=== PATIENT | female | born 1950 | race Caucasian/White ===

== ENCOUNTER → 2017-07-27 | Outpatient (CLI) | payer OTHER, MEDICARE | LOC: FIMAGING 10:13 | PROVIDERS: ATTEND Internal Medicine | DX: Z12.31 Encounter for screening mammogram for malignant neoplasm of breast (principal) | CPT/HCPCS: G0202 ==

== ENCOUNTER → 2017-09-02 | Outpatient (CLI) | payer OTHER, MEDICARE | LOC: FIMAGING 12:11 | PROVIDERS: ATTEND Internal Medicine | DX: R92.8 Other abnormal and inconclusive findings on diagnostic imaging of breast (principal) ==

== ENCOUNTER → 2017-09-22 | Day surgery (SDC) | payer OTHER, MEDICARE ==
[~2017-09-22] MED LIST: LIDOCAINE 1% 2 ML INJ ID PRN; LR 1,000 ML IV ONE; TRANEXAMIC ACID 1,000 MG in NS (SYRINGE) 50 ML IV ONE; ceFAZolin 2 GM/SWFI 2 GM/20 ML SYR IVP ONE
== END | disposition home or self-care (01) ==
LOC: UNDOADMIN 05:40 → FSGY 05:40 → F3N 05:40 → EDSTATUS 07:15
PROVIDERS: ATTEND Orthopaedic Surgery Sports Medicine
DX: M17.12 Unilateral primary osteoarthritis, left knee (principal); Z53.9 Procedure and treatment not carried out, unspecified reason

== ENCOUNTER 2017-10-12 05:42 | Observation (INO) | payer OTHER, MEDICARE ==
[2017-10-12] MEDS ORDERED: ROPIVACAINE 0.2% 80 MG, EPINEPHrine 0.2 MG, KETOROLAC TROMETHAMINE 30 MG, morphINE 10 M... IU ONE (06:00)
[2017-10-12] MEDS ORDERED: BUPI/epINEPH/KETOROLAC/morphINE IU ONE (06:00)
[2017-10-12] MEDS ORDERED: TRANEXAMIC ACID 1,000 MG in NS (SYRINGE) 50 ML IV ONE (06:00)
[2017-10-12] MEDS ORDERED: ceFAZolin 2 GM/SWFI 2 GM/20 ML SYR IVP ONE (06:08)
[2017-10-12] MEDS ORDERED: LIDOCAINE 1% 2 ML INJ ID PRN (06:09)
[2017-10-12] MEDS ORDERED: LR 1,000 ML IV ONE (06:09)
--- NOTE | 2017-10-12 06:17 | PDANEPAE ---
ANE History of Present Illness Knee arthroplasty,L ANE Past Medical History - Cardiovascular History Hx Hypertension: Yes Hx Arrhythmias: No Hx Chest Pain: No Hx Coronary Artery / Peripheral Vascular Disease: No Hx CHF / Valvular Disease: No Hx Palpitations: No Cardiovascular History Comment: Mother heart failure 68 yo. echocardiogram on 05/16: diastolic dysfunction - Pulmonary History Hx COPD: No Hx Asthma/Reactive Airway Disease: No Hx Recent Upper Respiratory Infection: No Hx Oxygen in Use at Home: No Hx Sleep Apnea: No Sleep Apnea Screening Result - Last Documented: Negative - Neurologic History Hx Cerebrovascular Accident: No Hx Seizures: No Hx Dementia: No Neurologic History Comment: acute encephalopathy on 05/16 - Endocrine History Hx Diabetes: No Hypothyroid: No Hyperthyroid: No Obesity: mild - Renal History Hx Renal Disorders: No Renal History Comment: acute renal failure on 05/16, creatinine returned to normal levels - Liver History Hx Hepatic Disorders: No Hepatic History Comment: elevated enzymes when drinking. Elevated LFT's on , associated with alcohol/substance use - Neurological & Psychiatric Hx Hx Neurological and Psychiatric Disorders: Yes Neurological / Psychiatric History Comment: mild depression&anxiety-med - Cancer History Hx Cancer: No - Congenital Disorder History Hx Congenital Disorders: Yes Congenital History Comment: alcoholism in past. - GI History GERD: no Hx Gastrointestinal Disorders: No Gastrointestinal History Comment: norm colonoscopy 02/15/14. - Other Health History Other Health History: Bilateral hearing loss-aids. Osteoarthritis in joints. Upper&lower missing teeth. - Chronic Pain History Chronic Pain: Yes (lower back) - Surgical History Prior Surgeries: 2011- R breast BX, neg. 2005-uterine ablation. 1978-ORIF R ankle. R ear mastoidectomy-1980. ANE Review of Systems Review of Systems: - Exercise capacity METS (RN): 4 METS ANE Patient History - Allergies Allergies/Adverse Reactions: No Known Allergies Allergy (Verified 10/05/17 16:06) - Home Medications Home Medications: Benazepril HCl [Lotensin (*)] 20 mg PO DAILY 02/12/14 [Last Taken 10/11/17] amLODIPine BESYLATE [Norvasc 10 mg (*)] 10 mg PO DAILY 02/12/14 [Last Taken 07/19] Zolpidem Tartrate [Ambien 5MG (*)] 5 mg PO HS 02/16/14 [Last Taken 10/11/17] ALPRAZolam [Xanax 0.5 MG (*)] 0.5 mg PO DAILY 04/25/15 [Last Taken 10/12/17] Acetamn/Diphenhydramine 500/25 [Tylenol PM (*)] 1 each PO HS PRN 10/05/17 [Last Taken 10/10/17] - Anes Hx Anes Hx: no prior problems - Smoking Hx Smoking Status: Never smoked - Family Anes Hx Family Anes Hx: none Family Hx Anesthesia Complications: none ANE Labs/Vital Signs - Vital Signs Height: 162.56 cm Weight: 72.575 kg ANE Physical Exam - Airway Neck exam: FROM Mallampati Score: Class 2 - Pulmonary Pulmonary: clear to auscultation - Cardiovascular Cardiovascular: regular rate and rhythym - ASA Status ASA Status: II ANE Anesthesia Plan Anesthesia Plan: spinal Regional Anesthesia: adductor canal FNB
[2017-10-12] MEDS ORDERED: ceFAZolin 1 GM/5 ML SYR ONE (07:01)
[2017-10-12] MEDS ORDERED: fentaNYL 100 MCG/2 ML INJ ONE (07:05)
[2017-10-12] MEDS ORDERED: PROPOFOL 200 MG/20 ML VIAL ONE ×3 (07:06→08:53)
--- NOTE | 2017-10-12 07:07 | PDHPUP ---
History & Physical Update H&P update statement: This history and physical update is based on an assessment of the patient which was completed after admission or registration (within 24 hours), but prior to the surgery/procedure. H&P update: H&P reviewed & patient examined, no change in patient's condition since H&P completed
[2017-10-12] MEDS ORDERED: MIDAZOLAM 2 MG/2 ML VIAL IVP ONE (07:08)
[2017-10-12] MEDS ORDERED: TRANEXAMIC ACID 1,000 MG/10 ML VIAL ONE (08:20)
[2017-10-12] MEDS ORDERED: BUPIVACAINE 0.5% 10 ML SDV ONE (09:16)
[2017-10-12] MEDS ORDERED: clonIDINE 1 MG/10 ML VIAL EP ONE (09:17)
[2017-10-12] MEDS ORDERED: fentaNYL 100 MCG/2 ML INJ IVP PRN (09:45)
[2017-10-12] MEDS ORDERED: HYDROmorphONE/DILAUDID 1 MG/ML INJ IVP PRN (09:45)
[2017-10-12] MEDS ORDERED: NALOXONE HCL 0.4 MG/ML INJ IVP PRN (09:45)
[2017-10-12] MEDS ORDERED: TEMAZEPAM 15 MG CAP PO PRN (09:59)
[2017-10-12] MEDS ORDERED: CYCLOBENZAPRINE 10 MG TAB PO PRN (09:59)
[2017-10-12] MEDS ORDERED: DIPHENOXYLATE/ATROPINE LOMOTIL 1 TAB PO PRN (09:59)
[2017-10-12] MEDS ORDERED: ONDANSETRON 4 MG/2 ML VIAL IVP PRN (09:59)
[2017-10-12] MEDS ORDERED: PROMETHAZINE HCL 25 MG SUPPR PR PRN (09:59)
[2017-10-12] MEDS ORDERED: PROMETHAZINE HCL 25 MG/ML INJ IVP PRN (09:59)
[2017-10-12] MEDS ORDERED: METOCLOPRAMIDE 10 MG/2 ML VIAL IVP PRN (09:59)
[2017-10-12] MEDS ORDERED: ONDANSETRON DISINTEGRATING 4 MG TAB PO PRN (09:59)
[2017-10-12] MEDS ORDERED: diphenhydrAMINE 25 MG CAP PO PRN (09:59)
[2017-10-12] MEDS ORDERED: LR 1,000 ML IV SCH ×2 (10:00→14:30)
--- NOTE | 2017-10-12 10:30 | POSTANESTH ---
Post Anesthetic Evaluation Cardiovascular Status: Similar to Pre-Op Cond Respiratory Status: Normal, Stable Level of Consciousness/Mental Status: Can Participate in Eval Pain Control: Adequate, Prn Tx Ordered Nausea/Vomiting Control: Adequate, Prn Tx Ordered Complications Possibly Related to Anesthesia: None Noted
--- NOTE | 2017-10-12 10:35 | GOP ---
[f rep st] OPERATIVE REPORT DATE OF OPERATION: 10/12/2017 SURGEON: Donaldo Serrano MD FEED MILL MANAGER: Mary Cole PA-C ANESTHESIA: Spinal. PREOPERATIVE DIAGNOSIS: 1. Left knee osteoarthritis. 2. Genu valgum. POSTOPERATIVE DIAGNOSIS: 1. Left knee osteoarthritis. 2. Genu valgum. PROCEDURE PERFORMED: Left total knee arthroplasty with posterior stabilized ConforMIS knee system. FINDINGS: DESCRIPTION OF PROCEDURE: Patient taken to the operating room under spinal anesthesia, placed in the supine position. The left lower extremity was prepped and draped in normal sterile fashion. Esmarc h exsanguination was performed followed by elevation of thigh cuff to 275 mmHg pressure. Midline inc ision was made through dermal subcutaneous tissues. Medial parapatellar incision was made. The huynh lla was reflected laterally. The anterior fat pad was partially excised. The anterior portion, medi al and lateral menisci were excised. The ACL remnant was excised. Distal femur was exposed. The di stal femoral drill guide was placed in the distal femur, indexed off the anterior cortex. Two drill lugs were made down to subchondral bone. The distal femoral cutting block was then placed on the dis chi femur, indexed off the subchondral bone and the medial and lateral femoral condyles. The guide w as secured with 3 pins. Distal femoral cut was a single cut made with the oscillating saw. The tibi a was exposed and retracted anteriorly. The articular surface of medial and lateral tibial plateaus was denuded of its cartilage using a ring curette. The tibial guide was then placed in the tibia and secured with 3 pins. The tibial cut was then made with the oscillating saw. This wafer of bone was removed. Our flexion extension gaps were assessed and felt to be appropriately balance. We subsequ ently placed the AP cutting block on the distal femur. Two pins were placed in the previously drille d axial holes on the end of the femoral condyles. Our flexion gap was then assessed with the AP cutt ing block in place. This was then secured with the medial and lateral pin. The AP cuts were then ma de with the oscillating saw. The anterior chamfer cut was then made with the oscillating saw. Two d rill lugs were drilled for the distal femur. The posterior chamfer cutting block was then placed in these drill lug holes. The 2 posterior chamfer cuts were made with the oscillating saw. The implant was a posterior stabilized implant and therefore, we placed the posterior stabilized cutting guide o n the femur. Our tunnel cut was then made with the reciprocating saw followed by the oscillating saw . The distal femoral trial implant was put in place and fit appropriately. The tibial tray was put in place. We tried a 6 and an 8. The 8 seemed to be most appropriate. The rotational axis was maribell ed. The trials were brought out. Our tibial tray was then pinned into position on the tibia in the appropriate alignment. Then, we drilled the metaphysis with the metaphyseal drill and then used the fin impaction device to impact the fins. Cement mixing commenced. Thorough lavage performed of all surfaces. All surfaces were thoroughly dried. The tibia cemented into place, followed by the femur, followed by the patella. After cement cured a no thumbs patellar test was performed. Patella track ed well. All excess cement was removed. The tourniquet was let down. Small bleeders were cauterized . The 8 mm poly insert was impacted into position. Again, the knee was put through flexion extensio n arc of motion, felt to be stable. The patella tracked well. Thorough lavage was again performed w ith normal saline. The retinaculum was closed with a #1 Vicryl suture followed by closure of subcuta neous tissue with 2-0 Vicryl suture, followed by closure of the dermis with jd. A sterile compr ession dressing applied. The patient tolerated procedure well, transferred back to recovery in sta e condition. No operative complications. COMPLICATIONS: None. /[id number]/MODL
[2017-10-12] MEDS ORDERED: BISACODYL 10 MG SUPP PR PRN (14:01)
[2017-10-12] MEDS ORDERED: LACTULOSE 20 GM/30 ML UDCUP PO PRN (14:01)
[2017-10-12] MEDS ORDERED: POLYETHYLENE GLYCOL 3350 17 GM PKT PO PRN (14:01)
[2017-10-12] MEDS ORDERED: MAGNESIUM HYDROXIDE 30 ML UDCUP PO PRN (14:01)
[2017-10-12] MEDS: oxyCODONE IR 5 MG TAB PO PRN ×3 (14:30→19:05)
[2017-10-12] MEDS ORDERED: WARFARIN SODIUM 7.5 MG TAB PO SCH (16:00)
[2017-10-12] MEDS: ceFAZolin 2 GM/SWFI 2 GM/20 ML SYR IVP SCH (16:58)
[2017-10-12] MEDS ORDERED: ZOLPIDEM TARTRATE 5 MG TAB PO SCH (21:00)
[2017-10-12] MEDS: FAMOTIDINE 20 MG TAB PO SCH (21:22)
[2017-10-12] MEDS: SENNOSIDES/DOCUSATE SODIUM TAB PO SCH (21:24)
[2017-10-13] MEDS: oxyCODONE IR 5 MG TAB PO PRN ×3 (01:14→14:16)
[2017-10-13] MEDS: ceFAZolin 2 GM/SWFI 2 GM/20 ML SYR IVP SCH (01:15)
[2017-10-13 06:15] LABS: INR 1.32 (0.83-1.16); PROTIME(PATIENT) 16.6 SEC (12.0-15.0)
[2017-10-13] MEDS: SENNOSIDES/DOCUSATE SODIUM TAB PO SCH (08:54)
[2017-10-13] MEDS: FAMOTIDINE 20 MG TAB PO SCH (08:54)
[2017-10-13] MEDS ORDERED: BENAZEPRIL HCL 20 MG TAB PO SCH (09:00)
[2017-10-13] MEDS ORDERED: SERTRALINE HCL 50 MG TAB PO SCH (09:00)
[2017-10-13 09:05] VITALS: RESP 16
--- NOTE | 2017-10-13 09:20 | SOAPPROG ---
SOAP Progress Note Assessment/Plan: Assessment: POD #1 s/p LEFT TKA: doing well, has been up with PT/OT, no signs of infection at this time. Pain well controlled, has passed flatus. Plan: -PT/OT: continue WBAT, encourage safe ambulation. Ok to D/C once cleared by PT/ OT. Will continue PT outpatient. -DVT prophylaxis: continue HAYLEE hose, SCDs, warfarin to dose. Advised patient to watch for worsening cough, congestion, chest pain, SOB, dyspnea, claudication, change in heat/color of extremity and to seek immediate medical attention if seen. -Increased PT post-op: pharmacy to adjust warfarin dose prn. Please continue per their recc's, appreciate their recommendations. -Ok to D/C once stable. -Ok to place new dry dressing prior to discharge. Advised patient to watch for abnormal bleeding/oozing/discharge, fever, chills, change in heat/color around wound and to seek immediate medical attn if seen. -Questions/concerns call our office at [phone] Patient/plan discussed and agreed upon with Dr. Serrano. 10/13/17 09:31 Subjective: Doing well s/p POD #1 LEFT TKA. Passed flatus, no BM. Pain well controlled. Denies worsening cough, congestion, SOB, dyspnea, loss of distal ROM or strength , change in heat/color of extremities, claudication, fever, chills, abnormal bleeding/oozing/discharge, change in heat/color around wound site. Has been compliant in PT and WBAT. Objective: Vital Signs Temp Pulse Resp BP Pulse Ox 36.7 C 80 16 130/72 H 100 10/13/17 09:04 10/13/17 09:04 10/13/17 09:04 10/13/17 09:04 10/13/17 09:04 Laboratory Results 10/13/17 05:50 10/12/17 10/13/17 10/14/17 05:59 05:59 05:59 Intake Total 2175 Output Total 1400 Balance 775 PT 16.6 SEC (12.0-15.0) H 10/13/17 05:50 INR 1.32 (0.83-1.16) H 10/13/17 05:50 A&O. Able to respond appropriately to questions, alone in room. NAD. Non- labored breathing, no diaphoresis. Non-labored breathing. Abdomen soft, NT, non- distended. M/S: Left knee dressing in good condition with HAYLEE hose in place. No abnormal bleeding/oozing/discharge, change in heat/color around wound site or of extremity. Calves soft and supple and NTTP b/l with brisk cap refill. Gross sensation intact and NVI b/l with no focal deficits. 5/5 strength present in ankles/toes; unable to fully assess left knee strength due to pain to patient, but is able to actively flex/extend the knee without difficulty. SCDs in place b /l. X-ray: 3 views of left knee shows TKA in good position and alignment with no evidence of fracture, malalignment or deformity. - Pending Discharge Pending Discharge Within 24 Hours: Yes Pending Discharge Date: 10/14/17 (Once cleared by PT/OT.) Pending Discharge Time: 11:00 ICD10 Worksheet Patient Problems: Problems Problem Status Onset SARAH (acute kidney injury) Acute ATN (acute tubular necrosis) Acute Acute hyperactive alcohol withdrawal delirium Acute Acute hypoxemic respiratory failure Acute Alcoholic hepatitis without ascites Acute Lactic acidosis Acute Severe sepsis Acute Osteoarthritis of right knee Chronic
[2017-10-13] MEDS ORDERED: FLU VACC QS 2017-18 (3YR+)/PF 0.5 ML SYR (FLUARIX QUAD) IM ONE (10:36)
--- NOTE | 2017-10-13 11:39 | PDIAF ---
- Diagnosis Code Status: Full Code - Medication Management Discharge Medications: Medications to Continue on Transfer Benazepril HCl [Lotensin (*)] 20 mg PO DAILY 02/12/14 [Last Taken 10/11/17] amLODIPine BESYLATE [Norvasc 10 mg (*)] 10 mg PO DAILY 02/12/14 [Last Taken 07/19] Zolpidem Tartrate [Ambien 5MG (*)] 5 mg PO HS 02/16/14 [Last Taken 10/11/17] ALPRAZolam [Xanax 0.5 MG (*)] 0.5 mg PO DAILY 04/25/15 [Last Taken 10/12/17] Sertraline HCl [Zoloft 50mg (*)] 50 mg PO DAILY #30 tab 05/03/15 [Last Taken ] oxyCODONE IR [Oxycodone Ir (*)] 5 - 10 mg PO Q4-6PRN PRN #30 tab 10/13/17 [Last Taken Unknown] Discharge Medications: Refer to the Discharge Home Medication list for PRN reason. PICC Care - Routine: N/A - Orders Services needed: Home Care, Physical Therapy Home Care Face to Face: I certify that this patient was under my care and that I had the required [id number] encounter meeting the encounter requirements on the discharge day. My findings support the fact that the patient is homebound as defined in Home Care Face to Face Continued: CMS Chapter 7 Medicare Benefits Manual 30.1.1 , The condition of the patient is such that there exists a normal inability to leave home and consequently, leaving home would require a considerable and taxing effort. Isolation Type: None Diet Recommendation: no restrictions on diet Diet Texture: Regular Texture Diet James: Not applicable Wound Care Instructions: Dry dressing. Sutures/[place] Site: Leave in place. Activity/Weight Bearing Restrictions: WBAT. - Labs/Radiology PT/INR Date: 10/15/17 (Every Wednesday/.) Call or Fax Lab and Imaging Results to: [phone] - Follow Up Care Current Providers and Referrals: Lionel Linda MD [Primary Care Provider] - Donaldo Serrano MD [Medical Doctor] -
[2017-10-13 12:55] VITALS: BP 98/60; PULSE 66; TEMP 98.4; O2SAT 98
--- NOTE | 2017-10-13 15:53 | ASMTCMCOM ---
CM Note CM Note Notes: Pt medically stable for d/c with [facility] RN/PT. PT rec home care. Orders sent in [employer]. Pt address/phone verified. Date Signed: 10/13/2017 03:53 PM Electronically Signed By:ABEL Walton
[2017-10-13] MEDS ORDERED: WARFARIN SODIUM 5 MG TAB PO ONE (16:00)
--- NOTE | 2017-10-14 10:20 | ASDISCHSUM ---
Discharge Information Plan Status:Home with Home Health Medically Cleared to Leave: Discharge Date:10/13/2017 04:08 PM CM D/C Disposition:Home Health Service ADT D/C Disposition:[id number] Projected Discharge Date:10/13/2017 11:00 AM Transportation at D/C: Discharge Delay Reason: Follow-Up Date:10/13/2017 11:00 AM Discharge Slot: Final Diagnosis: Placement Information Referral Type:*Home Health Care Services Referral ID:[id number] Provider Name:[facility] Address 1:[address] Address 2: City:[place] Selection Factors: State:[place] Patient Contact Information Contact Name:BRIEN Relationship: Address:[address] City:[place] Alternate Phone: State/Zip Code:[place] [address] Email: Financial Information Financial Class:Medicare Primary Plan Desc:MEDICARE OUTPATIENT Primary Plan Number:[id number] Secondary Plan Desc:[employer]/MDR SUPPLEMENT Secondary Plan Number:[id number] Assessment Information [facility] CM Progress Note CM Note CM Note Notes: Pt medically stable for d/c with [facility] RN/PT. PT rec home care. Orders sent in [facility]. Pt address/phone verified. Date Signed: 10/13/2017 03:53 PM Electronically Signed By:ABEL Walton Intervention Information Intervention Type:MARIE-Signed Date of Service:10/13/2017 10:48 AM Patient Type:Observation Staff Member:Aline Sibley Hours: Discipline: Severity: Comment: Intervention Type:*Condition Code 44 Date of Service:10/13/2017 04:33 PM Patient Type:Observation Staff Member:GRIS Alvarez Susan Hours: Discipline: Severity: Comment:
== END 2017-10-13 16:08 | disposition home health service (06) ==
LOC: F3N 05:42 → INTOOBSV 05:42 → F3N 11:33
PROVIDERS: ADMIT Orthopaedic Surgery Sports Medicine; ATTEND Orthopaedic Surgery Sports Medicine
PROC: 0SRD0J9 Replacement of Left Knee Joint with Synthetic Substitute, Cemented, Open Approach (ICD-10-PCS; principal; 2017-10-12 07:15)
DX: M17.12 Unilateral primary osteoarthritis, left knee (principal); M21.062 Valgus deformity, not elsewhere classified, left knee; F41.9 Anxiety disorder, unspecified; F10.21 Alcohol dependence, in remission; H91.93 Unspecified hearing loss, bilateral
CPT/HCPCS: 27447; 73560; 88305; 88311; 90686; 97110; 97116; 97161; 97165; C1713; C1776; G0008; G8978; G8979; G8980; G8987; G8988; G8989; J0171; J0690; J0735; J1885; J2250; J2270; J2704; J3010; J2795

== ENCOUNTER 2018-05-30 12:05 | Day surgery (SDC) | payer OTHER, MEDICARE ==
[2018-05-30] MEDS ORDERED: LR 1,000 ML IV ONE (12:53)
--- NOTE | 2018-05-30 13:51 | PDANEPAE ---
ANE History of Present Illness colonoscopy ANE Past Medical History - Cardiovascular History Hx Hypertension: Yes Hx Arrhythmias: No Hx Chest Pain: No Hx Coronary Artery / Peripheral Vascular Disease: No Hx CHF / Valvular Disease: No Hx Palpitations: No Cardiovascular History Comment: echocardiogram on 05/16: diastolic dysfunction - Pulmonary History Hx COPD: No Hx Asthma/Reactive Airway Disease: No Hx Recent Upper Respiratory Infection: No Hx Oxygen in Use at Home: No Hx Sleep Apnea: No Sleep Apnea Screening Result - Last Documented: Negative - Neurologic History Hx Cerebrovascular Accident: No Hx Seizures: No Hx Dementia: No Neurologic History Comment: acute encephalopathy on 05/16 - Endocrine History Hx Diabetes: No - Renal History Hx Renal Disorders: No Renal History Comment: acute renal failure on 05/16, creatinine returned to normal levels - Liver History Hx Hepatic Disorders: No Hepatic History Comment: elevated enzymes in past. Elevated LFT's on 05/16, associated with alcohol/substance use - Neurological & Psychiatric Hx Hx Neurological and Psychiatric Disorders: Yes Neurological / Psychiatric History Comment: mild depression&anxiety-med - Cancer History Hx Cancer: No - Congenital Disorder History Hx Congenital Disorders: Yes Congenital History Comment: alcoholism in past - GI History Hx Gastrointestinal Disorders: No Gastrointestinal History Comment: norm colonoscopy 02/15/14. - Other Health History Other Health History: Bilateral hearing loss-aids. Osteoarthritis in joints. Upper&lower missing teeth. - Chronic Pain History Chronic Pain: No - Surgical History Prior Surgeries: COLONOSCOPY. 2011- R breast BX, neg. 2006-uterine ablation. 1978-ORIF R ankle. R ear mastoidectomy-1980. ANE Review of Systems Review of systems is: negative Review of Systems: - Exercise capacity METS (RN): 4 METS ANE Patient History - Allergies Allergies/Adverse Reactions: No Known Allergies Allergy (Verified 10/05/17 16:06) - Home Medications Home medications: home medication list seen and reviewed Home Medications: Benazepril HCl [Lotensin (*)] 20 mg PO DAILY 02/12/14 [Last Taken 05/28/18] amLODIPine BESYLATE [Norvasc 10 mg (*)] 10 mg PO DAILY 02/12/14 [Last Taken ] Zolpidem Tartrate [Ambien 5MG (*)] 5 mg PO HS 02/16/14 [Last Taken 05/29/18] ALPRAZolam [Xanax 0.5 MG (*)] 0.5 mg PO DAILY 04/25/15 [Last Taken 05/30/18] Aleve 05/25/18 [Last Taken 05/23/18] Herbals/Supplements -Info Only 05/25/18 [Last Taken 05/23/18] - NPO status NPO Since - Liquids (Date): 05/30/18 NPO Since - Liquids (Time): 09:00 NPO Since - Solids (Date): 05/29/18 NPO Since - Solids (Time): 13:09 - Smoking Hx Smoking Status: Never smoked - Alcohol Use Alcohol Use: Heavy (now sober) - Family Anes Hx Family Hx Anesthesia Complications: none ANE Labs/Vital Signs - Vital Signs Vital Signs: reviewed preoperatively; see RN documention for details Blood Pressure: 109/71 Heart Rate: 76 Respiratory Rate: 16 O2 Sat (%): 92 Height: 162.56 cm Weight: 74.843 kg ANE Physical Exam - Airway Neck exam: FROM Mallampati Score: Class 1 Mouth exam: normal dental/mouth exam - Pulmonary Pulmonary: no respiratory distress - Cardiovascular Cardiovascular: regular rate and rhythym - ASA Status ASA Status: III ANE Anesthesia Plan Total IV Anesthesia: Yes
[2018-05-30] MEDS ORDERED: LIDOCAINE 2% 100 MG/5 ML SYR ONE (14:03)
[2018-05-30] MEDS ORDERED: PROPOFOL/EMULSION 500 MG/50 ML BOTTLE IV ONE (14:03)
--- NOTE | 2018-05-30 14:07 | PDGENHP ---
History & Physical Chief Complaint: sigmoid polyp History of Present Illness: 68 year old female presents for EMR of a complex polyp Pertinent Past, Social, Family History: PMHx; encephalopathy, arf. SoHx: past etoh use Relevant Physical Exam: HEENT: anicteric. CV: RRR +s1s2. Lungs: CTAB. Abd: soft, nt, nd, + bs Cardiorespiratory Assessment: ASA 3
[2018-05-30] MEDS ORDERED: HYDROmorphONE/DILAUDID 2 MG/ML INJ IVP PRN (14:18)
[2018-05-30] MEDS ORDERED: HYDROCODONE/APAP 5/325 TAB PO PRN (14:18)
[2018-05-30] MEDS ORDERED: oxyCODONE IR 5 MG TAB PO PRN (14:18)
[2018-05-30] MEDS ORDERED: fentaNYL 100 MCG/2 ML INJ IVP PRN (14:18)
[2018-05-30] MEDS ORDERED: PROMETHAZINE HCL 25 MG/ML INJ IVP PRN (14:18)
[2018-05-30] MEDS ORDERED: DEXAMETHASONE 4 MG/ML VIAL IVP PRN (14:18)
[2018-05-30] MEDS ORDERED: ONDANSETRON 4 MG/2 ML VIAL IVP PRN (14:18)
[2018-05-30] MEDS ORDERED: NALOXONE HCL 0.4 MG/ML INJ IVP PRN (14:18)
[2018-05-30] MEDS ORDERED: ACETAMINOPHEN 500 MG TAB PO PRN (14:18)
--- NOTE | 2018-05-30 14:18 | POSTANESTH ---
Post Anesthetic Evaluation Cardiovascular Status: Normal, Stable, Similar to Pre-Op Cond Respiratory Status: Normal, Stable, Similar to Pre-op Cond. Level of Consciousness/Mental Status: Can Participate in Eval, Moderately Sleepy Pain Control: Adequate, Prn Tx Ordered Nausea/Vomiting Control: Adequate, Prn Tx Ordered Complications Possibly Related to Anesthesia: Other, See Comments (Pt reports foreign body sensation, L eye. Possible corneal abrasion. Reassured, instructed to keep eye closed, do not rub, follow up if no improvement, saline flush/moisturizing drops if desired)
--- NOTE | 2018-05-30 15:01 | GIREPORT ---
[facility] Surgical Services - Endoscopy Department Patient Name: Kylah Phipps Procedure Date: 05/30/2018 1:55 PM Patient Type: Outpatient Attending MD/ ER Physician: Steve Armando MD Procedure: Colonoscopy Indications: High risk colon cancer surveillance: Personal history of colonic polyps Patient Profile: 68 year old female presents for EMR of a complex sigmoid lesion. Providers: Steve Armando MD Medicines: Monitored Anesthesia Care Complications: No immediate complications. Estimated blood loss: Minimal. Description of Procedure: After obtaining informed consent, the scope was passed under direct vis ion. Throughout the procedure, the patient's blood pressure, pulse, and oxyg en saturations were monitored continuously. The Colonoscope with irrigatio n channel was introduced through the anus and advanced to the cecum, identified by appendiceal orifice and ileocecal valve. The colonoscopy was performed without difficulty. The patient tolerated the procedure well. The quality of the bowel preparation was good. The ileocecal valve, appendi ceal orifice, and rectum were photographed. Findings: The perianal and digital rectal examinations were normal. Pertinent negatives include no palpable rectal lesions. A fungating, infiltrative and ulcerated non-obstructing medium-sized ma ss was found in the sigmoid colon. The mass was partially circumferential (involving one-half of the lumen circumference). The mass measured five cm in length. This was biopsied with a cold forceps for histology. Area wa s tattooed with an injection of 5 mL of Yancy ink. Suspect malignancy. Diverticula were found in the sigmoid colon. Estimated Blood Loss: Estimated blood loss was minimal. Post Op Diagnosis: - Likely malignant tumor in the sigmoid colon. Biopsied. Tattooed. - Diverticulosis in the sigmoid colon. Recommendation: - Discharge patient to home (with escort). - The signs and symptoms of potential delayed complications were discus sed with the patient. - Return to normal activities tomorrow. - Resume previous diet. - Continue present medications. - Repeat colonoscopy in 1 year for surveillance. - Surgery. - Await pathology results. - Thank you for allowing me to participate in the care of your patient. Attending Participation: I personally performed the entire procedure. Steve Armando MD Steve Armando MD 05/30/2018 3:00:59 PM This report has been signed electronicallySteve Armando MD Number of Addenda: 0 Note Initiated On: 05/30/2018 1:55 PM Total Procedure Duration Time 0 hours 23 minutes 37 seconds [email or web address]
[2018-05-30 16:00] VITALS: BP 131/68
== END 2018-05-30 16:13 | disposition home or self-care (01) ==
LOC: FSGY 12:05
PROVIDERS: ATTEND Internal Medicine Gastroenterology
DX: Z12.11 Encounter for screening for malignant neoplasm of colon (principal); C18.9 Malignant neoplasm of colon, unspecified; K57.30 Diverticulosis of large intestine without perforation or abscess without bleeding; I10 Essential (primary) hypertension; Z86.010 Personal history of colon polyps
CPT/HCPCS: J2001; J2704

== ENCOUNTER → 2018-08-15 | Outpatient (CLI) | payer OTHER, MEDICARE | LOC: FIMAGING 09:06 | PROVIDERS: ATTEND Physician Assistant | DX: C18.9 Malignant neoplasm of colon, unspecified (principal) ==